=== PATIENT | male | born 1960 ===

== ENCOUNTER 2022-07-13 08:47 | Outpatient (CLI) | payer BC, SELFPAY ==
--- NOTE | 2022-07-13 09:05 | USCV_ITS ---
Hema Landen Age: 61 Gender: M : 1960 Exam Date: 07/13/2022 09:30 Ordering Phys: Nadya Bacon Technologist: MYNOR Exam Location: [facility] [place]: HISTORY: PROCEDURES: FINDINGS: Pt has varicocities mid thigh to ankle in Lt extremity. Appears to have thrombus in varicocities starting mid thigh down to ankle. Thrombus extended into GSV below knee, extending to ankle. Venous reflux was noted in the proximal segment of the left greater saphenous vein Multiple varicose veins were noted from the mid thigh to the ankle on the left side CONCLUSIONS 1. No evidence of DVT in the above-mentioned identifiable veins. 2. Significant venous reflux of greater than 500 ms was noted at the proximal segment of the greater saphenous vein on the left side. The venous segment was measuring 1.02 cm in diameter. But it was less than 1 cm deep from the surface(0.87 cm) 3. Thrombus filling up the entire lumen -was noted in the superficial veins from mid thigh to the ankle on the left side involving the greater saphenous vein Dr Terri Ferguson MD [facility] (Electronically Signed) Final Date: 15 July 2022 15:17 S
== END 2022-07-13 08:48 | disposition home or self-care (01) ==
PROVIDERS: PCP Nurse Practitioner Family; Visit Provider Nurse Practitioner Family
DX: I83.92 Asymptomatic varicose veins of left lower extremity (principal)
CPT/HCPCS: 93970

== ENCOUNTER 2022-09-07 06:16 | Outpatient (CLI) | payer BC, SELFPAY ==
--- NOTE | 2022-09-07 | USCV_ITS ---
Landen Garrido Age: 61 Gender: M : 1960 Exam Date: 09/07/2022 06:29 Ordering Phys: Nadya Bacon Technologist: DALJIT Exam Location: [facility] Indication: A FIB, HTN BP: 158 / 100 HR: 64 Rhythm: Atrial fibrillation Technical Quality: Adequate MEASUREMENTS (Male / Female) Normal Values 2D ECHO LVOT Diameter 2.0 cm LV Ejection Fraction MOD 2C 43.4 % LV Ejection Fraction 2C AL 46.0 % LA Diameter 3.7 cm LA Width 3.8 cm LA Height 6.2 cm RA Width 4.8 cm RA Height 5.9 cm Aorta at Sinotubular Diameter 2.7 cm IVC Diameter 2.7 cm M-MODE Aortic Annulus Diameter 3.3 cm LA Ao Ratio MM 1.1 MV E Point Septal Separation 1.0 cm DOPPLER AV Peak Velocity 95.0 cm/s LVOT Peak Velocity 81.0 cm/s AV Area Cont Eq vti 2.6 cm squared AV Area Cont Eq pk 2.8 cm squared MV Peak Velocity 85.0 cm/s MV Area PHT 2.9 cm squared MV E' Velocity 43.0 cm/s Mitral E to MV E' Ratio 8.2 Mitral E to LV E' Lateral Ratio 6.5 Mitral E to LV E' Septal Ratio 11.2 TR Peak Velocity 171.5 cm/s TR Peak Gradient 11.8 mmHg TR Mean Velocity 137.8 cm/s TR Mean Gradient 8.3 mmHg TR Velocity Time Integral 50.5 cm TV Peak E Velocity 46.0 cm/s Right Atrial Pressure 8.0 mmHg Pulmonary Artery Systolic Pressu 19.8 mmHg PV Peak Velocity 79.0 cm/s RV Acceleration Time 0.1 s RV Ejection Time 0.3 s RV AcT/ET 0.4 FINDINGS Left Ventricle LV systolic function was is mildly reduced with estimated ejection fraction about 45 to 50% mild global hypokinesis. LV size is normal. Right Ventricle Normal RV size and function. Right Atrium Mildly dilated Left Atrium Mildly dilated Mitral Valve Structurally normal mitral valve. No mitral stenosis. There is mild mitral regurgitation Aortic Valve Structurally normal. No significant aortic stenosis there is mild mitral aortic regurgitation Tricuspid Valve There is mild tricuspid regurgitation with normal pulmonary artery pressure. Pulmonic Valve Trivial pulmonic insufficiency. Valve structurally Pericardium No pericardial effusion Aorta Normal IVC Normal CONCLUSIONS 1. Mild reduced reduced LV systolic function with estimate ejection fraction about 40 to 50%. 2. Mild mitral regurgitation. 3. Mild mitral regurgitation. 4. Mild tricuspid regurgitation with normal PA pressure Kyree Silva MD (Electronically Signed) Final Date: 07 September 2022 10:08 S
== END 2022-09-07 06:17 | disposition home or self-care (01) ==
PROVIDERS: PCP Nurse Practitioner Family; Visit Provider Nurse Practitioner Family
DX: I48.91 Unspecified atrial fibrillation (principal); I08.1 Rheumatic disorders of both mitral and tricuspid valves
CPT/HCPCS: 93306

== ENCOUNTER 2024-06-11 08:16 | Outpatient (CLI) | payer BC, SELFPAY ==
--- NOTE | 2024-06-11 08:24 | CTR_ITS ---
PROCEDURE INFORMATION: Exam: CT Abdomen And Pelvis Without And With Contrast Exam date and time: 06/11/2024 8:50 AM Age: 63 years old Clinical indication: Condition or disease; Kidney or ureter condition; Calculus (stone) in kidney; Additional info: HX of kidney stones/microscopic hematuria TECHNIQUE: Imaging protocol: Computed tomography of the abdomen and pelvis without and with contrast. Radiation optimization: All CT scans at this facility use at least one of these dose optimization techniques: automated exposure control; mA and/or kV adjustment per patient size (includes targeted exams where dose is matched to clinical indication); or iterative reconstruction. Contrast material: 0MNI 350; Contrast volume: 100 ml; Contrast route: INTRAVENOUS (IV); COMPARISON: No relevant prior studies available. RADIATION DOSE METRICS: Total DLP (mGy-cm): 1615.13 FINDINGS: Liver: Small hepatic cysts. Gallbladder and biliary ducts: Normal. No calcified stones. No ductal dilation. Pancreas: Normal. No ductal dilation. Spleen: Normal. No splenomegaly. Adrenal glands: Normal. No mass. Kidneys and ureters: 4 x 7 mm essentially nonobstructing distal right ureteral calculus. Additional nonobstructing renal calculi on either side. Small renal cysts. Stomach and bowel: Unremarkable. No obstruction. No mucosal thickening. Appendix: No evidence of appendicitis. Intraperitoneal space: Unremarkable. No free air. No significant fluid collection. Vasculature: Unremarkable. No abdominal aortic aneurysm. Lymph nodes: Unremarkable. No enlarged lymph nodes. Urinary bladder: Unremarkable as visualized. Reproductive: Unremarkable as visualized. Bones/joints: Unremarkable. No acute fracture. Soft tissues: Unremarkable. CT/CT abdomen pelvis wo/w [id number] IMPRESSION: Essentially nonobstructing distal right ureteral calculus. COMMENTS: Consistent with the [employer]'s Incidental Findings Committee white paper (J Am Rachel Radiol 2018): Any incidental renal lesion less than 1 cm or classified as too small to characterize, or any incidental cystic renal lesion characterized as simple-appearing, is likely benign. No follow-up imaging is recommended for these lesions per consensus recommendations based on imaging criteria.
[2024-06-11 08:40] LABS: Blood Urea Nitrogen 17 mg/dL (8-23)
[2024-06-11] MEDS: iohexol 350 mg/mL 500 mL Btl (per mL) IV (08:52)
== END 2024-06-11 08:17 | disposition home or self-care (01) ==
LOC: RAD 08:19
PROVIDERS: PCP Nurse Practitioner Adult Health; Visit Provider Nurse Practitioner Adult Health
DX: R31.29 Other microscopic hematuria (principal); Z87.442 Personal history of urinary calculi; K76.89 Other specified diseases of liver; N20.1 Calculus of ureter; N28.1 Cyst of kidney, acquired
CPT/HCPCS: 74178; 82565; 84520

== ENCOUNTER 2024-06-27 08:49 | Outpatient (CLI) | payer BC, SELFPAY ==
--- NOTE | 2024-06-27 08:55 | US_ITS ---
WS: [id number] ULTRASOUND ABDOMEN CLINICAL INFORMATION: HEPATIC CYSTS COMPARISON: CT 06/10 FINDINGS: Liver Size: Normal. Craniocaudal length: 16.0 cm. Echogenicity: Normal. Surface nodularity: None. Mass (size and location): Numerous hepatic cysts some with a few septations Bile ducts Intrahepatic ducts: Normal. Common bile duct diameter: 0.3 cm. Gallbladder Normal. Gallstones: None. Gallbladder sludge: None. Gallbladder wall thickening: None. Pericholecystic fluid: None. Sonographic Guevara sign: Absent. Pancreas Not well visualized Spleen not well visualized Splenomegaly: None. Craniocaudal length: 9.9 cm. Right kidney: Normal. Hydronephrosis: None. Size: 10.4 cm x 5.7 cm x 5.7 cm Left kidney: Normal. Hydronephrosis: None. Size: 9.6 cm x 5.3 cm x 4.7 cm. Abdominal aorta and IVC Visualized portions are normal. Ascites: None. US/US abdomen complete* [id number] IMPRESSION: 1. Numerous hepatic cysts some with a few septations. Largest cyst measures 1. 7 x 1.8 cm. No solid lesions. 2. Normal gallbladder. 3. Bilateral renal cysts. The largest in the RIGHT measuring 2.5 x 2.7 cm. Lar gest on the LEFT measuring 1.6 x 1.2 cm 4. Pancreas and spleen not well visualized
== END 2024-06-27 08:50 | disposition home or self-care (01) ==
LOC: RAD 08:51
PROVIDERS: PCP Nurse Practitioner Adult Health; Visit Provider Nurse Practitioner Adult Health
DX: K76.89 Other specified diseases of liver (principal); N28.1 Cyst of kidney, acquired; R93.2 Abnormal findings on diagnostic imaging of liver and biliary tract
CPT/HCPCS: 76700